=== PATIENT | female | born 1990 | race Caucasian/White ===

== ENCOUNTER 2021-06-11 16:45 | Emergency (ER) | payer OTHER ==
[~2021-06-11 16:45] MED LIST: COLACE 100MG C100 MG PO; PRENATAL TABLE1 EAC1 PO
[2021-06-11 17:15] LABS: HEMOGLOBIN 15.1 gm/dl (12.3-15.3); RED BLOOD COUNT 4.78 M/UL (4.00-5.10); WHITE BLOOD COUNT 13.6 K/UL (4.5-11.0)
[2021-06-11 17:44] LABS: BUN/CREATININE RATIO 11 (0-10)
[2021-06-11] MEDS ORDERED: OMEPRAZOLE20 M1 PO (19:13)
== END 2021-06-11 19:29 | disposition home or self-care (01) ==
LOC: ER1 16:45
PROVIDERS: Physician Assistant
DX: R07.89 Other chest pain (principal); R10.13 Epigastric pain; F17.200 Nicotine dependence, unspecified, uncomplicated
CPT/HCPCS: 71045; 80053; 82550; 82553; 83690; 83874; 84484; 85025; 93005; 99285

== ENCOUNTER → 2022-01-21 | Day surgery (SDC) | payer OTHER ==
[~2022-01-21] MED LIST changes: +OMEPRAZOLE20 M1 PO; +TERBINAFINE HC250 MG PO
== END | disposition home or self-care (01) ==
LOC: OR 07:30
DX: K21.00 Gastro-esophageal reflux disease with esophagitis, without bleeding (principal); K31.7 Polyp of stomach and duodenum
CPT/HCPCS: 84703; J2704; J7040